=== PATIENT | male | born 1935 | race Caucasian/White ===

== ENCOUNTER 2016-12-11 09:27 | Outpatient (CLI) | payer OTHER | END 2016-12-11 23:00 | LOC: LAB SRH 09:27 | DX: I48.2 Chronic atrial fibrillation (principal); I48.92 Unspecified atrial flutter | CPT/HCPCS: 90074; 94060 ==

== ENCOUNTER 2016-12-17 13:08 | Outpatient (CLI) | payer OTHER | END 2016-12-17 23:00 | LOC: LAB SRH 13:08 | DX: I48.2 Chronic atrial fibrillation (principal); I48.92 Unspecified atrial flutter | CPT/HCPCS: 90074; 94060 ==

== ENCOUNTER 2016-12-24 11:12 | Outpatient (CLI) | payer OTHER | END 2016-12-24 23:00 | LOC: LAB SRH 11:12 | DX: Z51.81 Encounter for therapeutic drug level monitoring (principal); Z79.01 Long term (current) use of anticoagulants; I48.2 Chronic atrial fibrillation; I48.92 Unspecified atrial flutter | CPT/HCPCS: 90074; 94060 ==

== ENCOUNTER 2016-12-31 11:31 | Outpatient (CLI) | payer OTHER | END 2016-12-31 23:00 | LOC: LAB SRH 11:31 | DX: Z51.81 Encounter for therapeutic drug level monitoring (principal); Z79.01 Long term (current) use of anticoagulants; I48.2 Chronic atrial fibrillation; I48.92 Unspecified atrial flutter | CPT/HCPCS: 94060 ==

== ENCOUNTER 2017-01-13 08:45 | Outpatient (CLI) | payer OTHER | END 2017-01-13 23:00 | LOC: LAB SRH 08:45 | DX: Z51.81 Encounter for therapeutic drug level monitoring (principal); Z79.01 Long term (current) use of anticoagulants; I48.2 Chronic atrial fibrillation; I48.92 Unspecified atrial flutter | CPT/HCPCS: 90074; 94060 ==

== ENCOUNTER 2017-01-21 11:09 | Outpatient (CLI) | payer OTHER | END 2017-01-21 23:00 | LOC: LAB SRH 11:09 | DX: Z51.81 Encounter for therapeutic drug level monitoring (principal); Z79.01 Long term (current) use of anticoagulants; I48.2 Chronic atrial fibrillation; I48.92 Unspecified atrial flutter | CPT/HCPCS: 90074; 94060 ==